=== PATIENT | female | born 1970 | race Native Hawaiian/Other Pacific Islander ===

== ENCOUNTER 2017-05-09 19:37 | Outpatient (CLI) | payer OTHER ==
[~2017-05-09 19:37] MED LIST: ALPR0.5T24 PO; BACTRIM1 TAB PO; GABA100C2 PO; LISITAB PO
== END 2017-05-09 19:40 | disposition short-term general hospital (02) ==
LOC: AMB 19:37
DX: T14.91XA Suicide attempt, initial encounter (principal); X83.8XXA Intentional self-harm by other specified means, initial encounter; Y92.149 Unspecified place in prison as the place of occurrence of the external cause
CPT/HCPCS: A0425; A0427

== ENCOUNTER 2017-05-09 19:43 | Emergency (ER) | payer OTHER ==
[~2017-05-09] VITALS: Ht 162.6 cm; Wt 49.9 kg
[2017-05-09 20:26] LABS: PLATELET COUNT 286 K/uL (152-353)
[2017-05-09 20:36] LABS: POTASSIUM 3.4 mmol/L (3.6-5.2)
[2017-05-09 23:20] VITALS: BP 189/87; TEMP 98.3
== END 2017-05-09 23:25 ==
LOC: ED 19:43
DX: T14.91XA Suicide attempt, initial encounter (principal); N39.0 Urinary tract infection, site not specified; I44.7 Left bundle-branch block, unspecified; X83.8XXA Intentional self-harm by other specified means, initial encounter; Y92.149 Unspecified place in prison as the place of occurrence of the external cause
CPT/HCPCS: 36415; 80053; 80307; 80320; 81000; 85027; 87086; 87088; 93005; 99285

== ENCOUNTER 2018-08-14 10:26 | Outpatient (CLI) | payer BC ==
[2018-08-14 12:17] LABS: PLATELET COUNT 270 K/uL (152-353)
[2018-08-14 12:53] LABS: POTASSIUM 3.5 mmol/L (3.6-5.2)
== END 2018-08-14 20:17 | disposition home or self-care (01) ==
LOC: LABW 10:26 → RAD 10:26 → LABW 20:17
PROVIDERS: Internal Medicine
DX: J40 Bronchitis, not specified as acute or chronic (principal)
CPT/HCPCS: 36415; 80053; 80061; 80307; 81000; 84443; 85027

== ENCOUNTER 2019-01-09 23:55 | Emergency (ER) | payer OTHER ==
[~2019-01-09] VITALS: Ht 162.6 cm; Wt 64.4 kg
[2019-01-10 01:03] LABS: PLATELET COUNT 278 K/uL (152-353)
[2019-01-10 01:35] LABS: POTASSIUM 2.1 mmol/L (3.6-5.2)
[2019-01-10 02:25] VITALS: BP 128/70; TEMP 98.3
== END 2019-01-10 02:25 | disposition home or self-care (01) ==
LOC: ED 23:55
PROVIDERS: Emergency Medicine
DX: L03.116 Cellulitis of left lower limb (principal); E87.6 Hypokalemia
CPT/HCPCS: 36415; 80053; 85027; 96360; 99284

== ENCOUNTER 2021-05-07 10:57 | Emergency (ER) | payer OTHER ==
[~2021-05-07] VITALS: Ht 162.6 cm; Wt 64.4 kg
[2021-05-07 12:00] VITALS: BP 135/87; TEMP 98
== END 2021-05-07 12:00 | disposition home or self-care (01) ==
LOC: ED 10:57
PROC: 0HQ0XZZ Repair Scalp Skin, External Approach (ICD-10-PCS; principal; 2021-05-07)
DX: S09.8XXA Other specified injuries of head, initial encounter (principal); S01.01XA Laceration without foreign body of scalp, initial encounter; W22.8XXA Striking against or struck by other objects, initial encounter; Y92.094 Garage of other non-institutional residence as the place of occurrence of the external cause
CPT/HCPCS: 96372; 99283; J0690; J1885; J7040

== ENCOUNTER 2021-05-08 10:17 | Emergency (ER) | payer OTHER ==
[~2021-05-08] VITALS: Ht 162.6 cm; Wt 64.4 kg
[2021-05-08 10:49] VITALS: BP 128/78; TEMP 98
== END 2021-05-08 11:27 | disposition home or self-care (01) ==
LOC: ED 10:17
DX: S01.81XD Laceration without foreign body of other part of head, subsequent encounter (principal); W22.8XXD Striking against or struck by other objects, subsequent encounter; Y92.098 Other place in other non-institutional residence as the place of occurrence of the external cause
CPT/HCPCS: 99281

== ENCOUNTER 2021-05-12 02:42 | Emergency (ER) | payer OTHER ==
[~2021-05-12] VITALS: Ht 162.6 cm; Wt 72.6 kg
[2021-05-12 05:05] VITALS: BP 145/81; TEMP 98.5
== END 2021-05-12 05:49 | disposition home or self-care (01) ==
LOC: ED 02:42
DX: F41.8 Other specified anxiety disorders (principal)
CPT/HCPCS: 96372; 99282; J2060

== ENCOUNTER 2021-05-23 14:07 | Emergency (ER) | payer OTHER ==
[~2021-05-23] VITALS: Ht 162.6 cm; Wt 72.6 kg
[2021-05-23 14:16] VITALS: BP 145/84; TEMP 97.1
== END 2021-05-23 14:33 | disposition home or self-care (01) ==
LOC: ED 14:07
DX: Z48.02 Encounter for removal of sutures (principal)

== ENCOUNTER 2021-08-04 10:44 | Emergency (ER) | payer OTHER ==
[~2021-08-04] VITALS: Ht 162.6 cm; Wt 72.6 kg
[2021-08-04 10:58] VITALS: TEMP 97
[2021-08-04 11:28] LABS: PLATELET COUNT 259 K/uL (152-353)
[2021-08-04 11:36] LABS: POTASSIUM 3.2 mmol/L (3.6-5.2)
[2021-08-04 11:46] LABS: PARTIAL THROMBOPLASTIN TIME 25.9 SECONDS (24.5-33.6)
[2021-08-04] MEDS ORDERED: FURO40TA93 PO (12:55)
[2021-08-04] MEDS ORDERED: ASPIRIN 8181 MG PO (12:55)
[2021-08-04 13:43] VITALS: BP 135/71
== END 2021-08-04 13:43 | disposition home or self-care (01) ==
LOC: ED 10:44
PROVIDERS: Hospitalist
DX: R60.0 Localized edema (principal)
CPT/HCPCS: 80053; 82550; 83880; 84484; 85027; 85379; 85610; 85730; 93005; 96372; 99283; J1940

== ENCOUNTER 2022-01-08 14:51 | Emergency (ER) | payer OTHER ==
[~2022-01-08] VITALS: Ht 162.6 cm; Wt 63.0 kg
[~2022-01-08 14:51] MED LIST changes: +ASPIRIN 8181 MG PO; +FURO40TA93 PO
[2022-01-08 15:00] VITALS: TEMP 98.7
[2022-01-08 15:57] LABS: PLATELET COUNT 402 K/uL (152-353)
[2022-01-08 16:23] LABS: POTASSIUM 3.6 mmol/L (3.6-5.2)
[2022-01-08 16:28] LABS: PARTIAL THROMBOPLASTIN TIME 27.6 SECONDS (24.5-33.6)
[2022-01-08 19:00] VITALS: BP 152/101
== END 2022-01-08 19:00 | disposition short-term general hospital (02) ==
LOC: ED 14:51
PROVIDERS: Emergency Medicine
DX: I21.09 ST elevation (STEMI) myocardial infarction involving other coronary artery of anterior wall (principal); I10 Essential (primary) hypertension; I25.10 Atherosclerotic heart disease of native coronary artery without angina pectoris; Z11.52 Encounter for screening for COVID-19; F17.210 Nicotine dependence, cigarettes, uncomplicated
CPT/HCPCS: 36415; 80053; 84484; 85027; 85610; 85730; 87502; 87635; 93005; 96365; 96366; 96368; 96375; 99285; J1644; J1885; J2270; J2405; J2920; J3490; U0003

== ENCOUNTER 2022-01-16 11:58 | Emergency (ER) | payer OTHER ==
[~2022-01-16] VITALS: Ht 162.6 cm; Wt 63.0 kg
[2022-01-16 12:45] LABS: PLATELET COUNT 374 K/uL (152-353)
[2022-01-16 12:48] LABS: POTASSIUM 5.3 mmol/L (3.6-5.2)
[2022-01-16 12:53] LABS: PARTIAL THROMBOPLASTIN TIME 34.2 SECONDS (24.5-33.6)
[2022-01-16 21:05] VITALS: BP 135/79; TEMP 97.9
== END 2022-01-16 21:10 | disposition short-term general hospital (02) ==
LOC: ED 11:58
PROVIDERS: Emergency Medicine
DX: I24.9 Acute ischemic heart disease, unspecified (principal); I50.9 Heart failure, unspecified; I10 Essential (primary) hypertension; F17.210 Nicotine dependence, cigarettes, uncomplicated; Z11.52 Encounter for screening for COVID-19
CPT/HCPCS: 80053; 80307; 81000; 83880; 84484; 85027; 85379; 85610; 85730; 87086; 87088; 87635; 93005; 96365; 96375; 99284; J1644; J1940; J2270; J2405; J3490; U0003